=== PATIENT | female | born 1980 | race Caucasian/White ===

== ENCOUNTER → 2016-07-11 | Outpatient (CLI) | payer BC ==
--- NOTE | 2016-07-11 10:37 | DI ---
GALLBLADDER AND LIVER ULTRASOUND, 07/11/2016 8:49 AM: Clinical History: Abdominal pain. Previous Exam: None at this facility. Technique: Scans are performed through the right upper quadrant in multiple projections. The patient was rolled from side to side and the gallbladder was balloted with the probe to facilitate visualizat ion of small gallstones. The gallbladder is well distended and has a normal wall thickness. There is a large 25 mm gallstone t hat has associated acoustical shadowing change. It is mobile and moves with change in the patient's p osition. There is no Solorio's sign. The common bile duct measures 3 mm. The pancreas is visualized fr om the head to the body and is normal. The visualized portions of the liver, right kidney, and IVC ar e normal. The aorta is normal. Readin. Cholelithiasis. There is no Solorio's sign. The common bile duct measures 3 mm. 2. The liver, pancreas, right kidney, IVC, and aorta are normal.
== END ==
LOC: US 08:45
PROVIDERS: ATTEND Family Medicine
DX: R10.84 Generalized abdominal pain (principal); K80.20 Calculus of gallbladder without cholecystitis without obstruction
CPT/HCPCS: 76705

== ENCOUNTER → 2016-07-12 | Outpatient (CLI) | payer BC ==
[2016-07-12 11:24] LABS: BASOPHILS # (AUTO) 0.03 10*3/UL; BASOPHILS % (AUTO) 0.3 % (0-1); EOSINOPHILS % (AUTO) 3.7 % (0-8); HEMATOCRIT 43.4 % (37.0-47.0); IMM GRAN % (AUTO) 0.6 % (0-5); IMM GRAN# (AUTO) 0.07 10*3/UL; LYMPHOCYTES # (AUTO) 2.14 10*3/uL; LYMPHOCYTES % (AUTO) 19.2 % (10-50); MEAN CORPUSCULAR HEMOGLOBIN 30.1 PG (27-31); MEAN CORPUSCULAR HGB CONC 34.6 g/dL (33-37); MEAN PLATELET VOLUME 10.4 FL (7.4-12.2); MONOCYTES # (AUTO) 0.56 10*3/UL (0.3-0.8); NEUTROPHILS # (AUTO) 7.94 10*3/UL; NEUTROPHILS % (AUTO) 71.2 % (50-80); RDW COEFFICIENT OF VARIATION 13.1 % (11.5-14.5); RED BLOOD COUNT 4.98 10^6/uL (4.20-5.40); WHITE BLOOD COUNT 11.15 10^3/uL (4.8-10.8)
[2016-07-12 11:28] LABS: PLATELET MORPHOLOGY COMMENT NORMAL MORPHOLOGY (NORM)
[2016-07-12 12:09] LABS: AMYLASE 59 U/L (30-110); ASPARTATE AMINO TRANSFERASE 16 IU/L (8-39); BILIRUBIN,TOTAL 0.4 mg/dL (0.3-1.2); BLOOD UREA NITROGEN 14 mg/dL (7-22); CALCIUM 9.9 mg/dL (8.7-10.7); CHLORIDE 107 meq/L (98-112); CREATININE 0.8 mg/dL (0.50-1.20); EST GLOMERULAR FILTRATION > 60 (>60 ml/min/1.73m(2)); GLUCOSE 101 mg/dL (78-110); POTASSIUM 4.4 meq/L (3.8-5.2); SODIUM 138 meq/L (135-145); TOTAL PROTEIN 7.1 g/dL (6.1-8.0)
== END ==
LOC: MOB LAB 09:45
PROVIDERS: ATTEND Family Medicine
DX: R10.11 Right upper quadrant pain (principal); I10 Essential (primary) hypertension; F17.210 Nicotine dependence, cigarettes, uncomplicated
CPT/HCPCS: 36415; 80053; 82150; 83690; 84443; 85025

== ENCOUNTER 2016-07-16 08:17 | Day surgery (SDC) | payer BC ==
[~2016-07-16 08:17] MED LIST: AMPICILLIN/SULBACTAM 1.5 GM VIAL IV ONE; LIDOCAINE W/ SODIUM BICARB 0.5 ML SYR ONE; Lactated Ringers 1,000 ML PRIMARY IV ONE; Sodium Chloride 0.9% 100 ML IV ONE
[2016-07-16] MEDS ORDERED: BUPIVACAINE 0.25% W/ EPI - 10 ML VIAL ONE (08:57)
[2016-07-16] MEDS ORDERED: ROCURONIUM 10 MG/1 ML - 5 ML VIAL IVP ONE (09:37)
[2016-07-16] MEDS ORDERED: MIDAZOLAM 5 MG/1 ML ONE (09:38)
[2016-07-16] MEDS ORDERED: fentaNYL Inj 250 MCG/5 ML VIAL ONE (09:38)
[2016-07-16] MEDS ORDERED: LIDOCAINE MPF 2% - 5 ML (20 MG/1 ML) ONE (09:38)
[2016-07-16] MEDS ORDERED: DEXAMETHASONE SOD PHOSPHATE 4 MG/1 ML VIAL ONE (09:55)
[2016-07-16] MEDS ORDERED: KETOROLAC 30 MG/1 ML VIAL ONE (09:56)
[2016-07-16] MEDS ORDERED: ONDANSETRON 4 MG/2 ML VIAL ONE (09:56)
[2016-07-16] MEDS ORDERED: KETAMINE 100 MG/1 ML - 5 ML ONE (09:57)
[2016-07-16] MEDS ORDERED: Lactated Ringers 1,000 ML PRIMARY IV ONE (10:13)
[2016-07-16] MEDS ORDERED: HYDROmorphone 2 MG/1 ML ONE (10:38)
[2016-07-16] MEDS ORDERED: SUGAMMADEX SODIUM 200 MG/2 ML VIAL IV ONE (10:42)
[2016-07-16] MEDS ORDERED: MORPHINE SULFATE 2 MG/1 ML IVP PRN (10:55)
[2016-07-16] MEDS ORDERED: NORMAL SALINE 10 ML SYRINGE FLUSH IVP PRN ×2 (10:55→11:00)
[2016-07-16] MEDS ORDERED: HYDROcodone-APAP 7.5 MG-325 MG TABLET PO PRN (10:55)
[2016-07-16] MEDS ORDERED: ONDANSETRON 4 MG/2 ML VIAL IVP PRN (10:55)
[2016-07-16] MEDS ORDERED: KETOROLAC 30 MG/1 ML VIAL IVP PRN (10:55)
[2016-07-16] MEDS ORDERED: PROMETHAZINE 25 MG/1 ML VIAL IM PRN (11:00)
[2016-07-16] MEDS ORDERED: HYDROmorphone 2 MG/1 ML IVP PRN (11:00)
[2016-07-16] MEDS ORDERED: fentaNYL Inj 100 MCG/2 ML VIAL IVP PRN (11:00)
[2016-07-16] MEDS ORDERED: Lactated Ringers 1,000 ML PRIMARY IV SCH (11:00)
--- NOTE | 2016-07-16 11:03 | GEN.OPNOTE ---
Operative Note Surgery Date: 07/16/16 Preoperative Diagnosis: Cholelithiasis Postoperative Diagnosis: Cholelithiasis with chronic cholecystitis without obstruction Procedure: DaVinci single site laparoscopic cholecystectomy Data Operations Leader: Manpreet Mcpherson MD Anesthesia Provider: Albert James CRNA Anesthesia Type: General Estimated Blood Loss (mL): 1 Fluids: 1800 mL of LR Pathology: Gallbladder and gallstones Indications: Cholelithiasis Findings: Chronically inflamed appearing gallbladder with a large gallstone Complications: None Operative Summary: The patient is going to the operating room placed in supine position given general endotracheal anesthesia after adequate anesthesia patient is prepped draped sterile fashion. 0.025% Marcaine was infiltrated around the umbilicus a 2.5 cm incision was made through the umbilicus sharp dissection was carried to the subcutaneous tissue. Open the abdominal wall with sharp dissection once in the abdominal cavity I put the single side-port in pneumoperitoneum was obtained by insufflating CO2. After adequate pneumoperitoneum of the patient was positioned. We then put the camera port and docked in standard fashion. We then measured the gallbladder appropriate trocar size. We then docked the. robot to the camera and standard fashion. We then placed the ports and docked appropriately to the da Chago robot. The assistant corporate controller port was then placed. Gallbladder rest of the fundus retracted over liver edge. The surgeon then went to the console. I then dissected out the cystic duct. With 3 hemoclips 2 proximally one distally and then divided the cystic duct. Dissection of the cystic artery placed 2 hemoclips and then divided the cystic artery next to the gallbladder. Then dissected the gallbladder off the liver edge using the cautery we irrigated until clear. We then be docked for robot removed all trochars. We inserted the camera and inspected there is no injuries the common bile ducts no evidence of bile leak there was adequate hemostasis. Then removed the camera and port and removed the single site port along with the gallbladder. The fascia was closed with 0 Vicryl contusion or suture. Skin reapproximated using 4-0 Monocryl simple sutures. Sutures were applied sterile dressing was applied. Counts were correct. The patient was transferred to recovery room in stable condition.
[2016-07-16] MEDS ORDERED: HYDROcodone-APAP 7.5 MG-325 MG TABLET PO ONE (12:23)
[2016-07-16] MEDS ORDERED: fentaNYL Inj 100 MCG/2 ML VIAL ONE (12:38)
[2016-07-16 14:17] VITALS: RESP 12; TEMP 98.6
== END 2016-07-16 13:56 | disposition home or self-care (01) ==
LOC: SDSC 08:17
PROVIDERS: ATTEND Surgery
DX: K80.10 Calculus of gallbladder with chronic cholecystitis without obstruction (principal)
CPT/HCPCS: 47562; J1885; J2704; J3010 ×2; J0295; J1100; J1170; J2001; J2250; J2405; J7050; J7120

== ENCOUNTER 2016-08-14 14:15 | Emergency (ER) | payer BC ==
[2016-08-14 14:32] VITALS: RESP 14; TEMP 97.8
[2016-08-14] MEDS ORDERED: ONDANSETRON 4 MG/2 ML VIAL IVP ONE (14:32)
[2016-08-14] MEDS ORDERED: MEPERIDINE HCL/PF 100 MG/1 ML INJECTION IVP ONE (14:32)
[2016-08-14] MEDS ORDERED: PROMETHAZINE 25 MG/1 ML VIAL IM ONE (14:32)
[2016-08-14] MEDS ORDERED: KETOROLAC 15 MG/1 ML VIAL IVP ONE (14:32)
[2016-08-14] MEDS ORDERED: Sodium Chloride 0.9% 1,000 ML PRIMARY IV ONE (14:32)
[2016-08-14] MEDS ORDERED: NORMAL SALINE 10 ML SYRINGE FLUSH IVP PRN (14:32)
--- NOTE | 2016-08-14 15:35 | PDOC ---
Headache HPI - General Chief Complaint: Headache Stated Complaint: migraine x3 days Date Seen by Provider: 08/14/16 Time Seen by Provider: 14:30 - History of Present Illness Initial Comments: Patient is a very nice 35-year-old woman who unfortunately suffers from migraines and has since she was child. She rarely needs to come to the emergency department for management of these but this is one of those times. She has tried some medication she's been given as an outpatient and those are not working and she would like to break the cycle and get improvement from her headache. She states that in the past she has been given Demerol. She believes this is a typical migraine for her that it is not different in regards to quality or location of headache or anything that would make her think there something besides migraine going on here. She is on prophylactic medication including Topamax. She does follow with her primary care provider regularly in regards to her headaches. - Patient Home Medications Home Medications: Home Medications Ondansetron [Zofran Odt] 4 mg PO Q8H PRN #30 tab 04/02/16 Pantoprazole Sodium [Protonix] 40 mg ORAL QD #30 tab 04/02/16 Topiramate [Topamax] 150 mg PO QD #90 tab 04/02/16 Naratriptan HCl [Amerge] 2.5 mg PO QD PRN #15 tab 04/11/16 Fluoxetine HCl 1 tab PO DAILY #30 tab 07/12/16 Trazodone HCl 50 mg PO QHS #30 tab 07/12/16 Lisinopril 10 mg ORAL QD #30 tab 08/06/16 Tramadol HCl 1 tab PO Q4-6H #30 tab 08/14/16 - Patient Allergies Allergies/Adverse Reactions: Allergies Allergy/AdvReac Type Severity Reaction Status Date / Time No Known Allergies Allergy Verified 08/14/16 14:16 Past Medical History - heen HEENT History: Denies History Cardiovascular History: Hypertension Respiratory History: Denies History Gastrointestinal History: GERD, Gallbladder Disease Genitourinary History: Denies History Endocrine History: Denies History Musculoskeletal History: Back Pain Prosthesis or Implant: No Neurological History: Migraines, Motion Sickness Blood Disorders: Denies History Psychiatric History: Depression, Anxiety Disorders History of Sexually Transmitted Diseases: No Female Reproductive History: Hysterectomy Cancer History: Denies History In Past Year Been Physically Harmed or Verbally Threatened: No History of MDRO: No History of Other Communicable Diseases: No Tobacco Use: Current Every Day Smoker Alcohol Use: Rarely Substance Use Type: None Previous Surgical History: Yes Type / Date of Surgery: C SECTION X 2/ BACK SX/TUBAL / TONSILLECTOMY/ HYST/ ada Anesthesia Reactions: Yes (PONV BACK SURGERY) Malignant Hyperthermia: No Significant Family History: No pertinent family hx Past Medical History Reviewed: Reviewed - No Changes ROS - Limitations ROS Limitations: No Limitations Constitution: REPORTS: Denies Symptoms Cardiovascular: REPORTS: Denies Cardiac Symptoms Respiratory: REPORTS: Denies Resp Symptoms Headache Exam - General Appearance General Appearance: POSITIVE: Alert, Cooperative, Other (Clearly in pain) - HEENT Head / Face: POSITIVE: Atraumatic, Normal Inspection, No Facial Swelling Eyes: POSITIVE: Inspection Normal, PERRL Ears: POSITIVE: Ears Normal Inspection Nose: POSITIVE: Inspection Normal Headache Progress - Patient's Progress MDM / ED Course: IV is placed patient is given a 1 L normal saline bolus as well as some Demerol and Toradol for her pain. She states that narcotics always make her nauseated therefore she is given a dose of Zofran IV and a dose of Phenergan IM and hopefully this will allow her to rest and break the headache cycle as she is in. If this does well we'll go ahead and get her discharged home and have her follow-up closely with her primary care provider. Patient Care Time - Estimated PCT Patient Care Time (In Minutes): 30 Vital Signs - Recent Vital Signs Vital Signs: Vital Signs (Last 8 hours) Temp Pulse Resp BP Pulse Ox 08/14/16 14:16 97.8 F 97 14 136/84 96 Discharge Clinical Impression: Migraine Discharge Disposition: Discharged to Home Condition: Stable Patient Instructions Given at Discharge: Migraine Headache (ED) Additional Instructions: Follow-up with your primary care provider as soon as possible Use your [id number] and prescription medicines as prescribed by her primary care provider for any future headaches Return if he starts to have fever vomiting worsening headache or other concerning symptoms. Increase your Topamax as recommended by your primary care provider Follow Up With: MING GOTTI [Primary Care Provider] -
[2016-08-14] MEDS ORDERED: Meperidine Inj 50 MG/ML CARPUJECT IVP ONE (16:08)
== END 2016-08-14 18:15 | disposition home or self-care (01) ==
LOC: ER 14:15
DX: G43.009 Migraine without aura, not intractable, without status migrainosus (principal); Z72.0 Tobacco use
CPT/HCPCS: 96361; 96372; 96374; 96375; 99282; 99283; J1885; J2175; J2405; J2550; J7030

== ENCOUNTER → 2016-09-03 | Outpatient (CLI) | payer BC ==
--- NOTE | 2016-09-03 11:37 | DI ---
MRI BRAIN W/O CN,09/03/2016 8:46 AM: Clinical History: Tremor Previous Exam: February 23, 2008 Findings: Multiplanar MR images are obtained through the brain without contrast, and demonstrate normal, symmet reynaldo ventricles and other CSF containing spaces. There is no mass, hemorrhage or midline shift. The ce rebellar tonsils extend to the level of the foramen magnum without any extension through the foramen. The cerebellopontine angles are unremarkable. The major vascular flow voids are unremarkable. The intraorbital structures are unremarkable. The internal auditory canals are normal. Signal within the clivus is normal in the paranasal sinuses are unremarkable. Impression: Normal MRI brain.
== END ==
LOC: MRI 08:40
PROVIDERS: ATTEND Nurse Practitioner Family
DX: R25.1 Tremor, unspecified (principal)
CPT/HCPCS: 70551

== ENCOUNTER 2016-09-19 17:38 | Emergency (ER) | payer BC ==
--- NOTE | 2016-09-19 17:55 | PDOC ---
Gen Adult / Medical Screen HPI - General Chief Complaint: General Medical Stated Complaint: JOINT PAIN Date Seen by Provider: 09/19/16 Time Seen by Provider: 17:49 Source: POSITIVE: Patient Exam Limitations: POSITIVE: No limitations Nurse's Notes Reviewed & Considered: Yes - Indicators Temperature Between 95 and 101 Degrees: Yes Respirations Between 12 and 20: Yes Blood Pressure Between 100-165 (sys) and 60-100 (velasquez): Yes Pulse Range Between 60-105 (100 for age > 60 years): Yes Severe Pain (Greater than 5/10 Reported): Yes (body aches with arm and leg pain being greatest.) Chest or Abdominal Pain: No Inability to Walk: No Pt Reports Active High Risk Cond. (TB/Hepatitis/HIV/Chemo): No Abnormal Mental Status: No - History of Present Illness Initial Comments: Patient comes in today with chief complaint of arm and leg pain. Patient with arm and leg pain that has been ongoing for several weeks. She is scheduled to see a neurologist in [facility]. Her pain has gotten inordinately worse today. Predominantly pain is in her large muscle groups of the upper and lower extremities. 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 She is right handed. She denies any fever chills sweats, chest pain, shortness of breath, nausea vomiting or diarrhea, no rashes, no headaches, no vision changes. Body Location Affected: REPORTS: Upper Extremity (L), Upper Extremity (R), Lower Extremity (L), Lower Extremity (R) Timing: REPORTS: Constant, Getting Worse Duration: Unknown Similar Symptoms Previously: Yes Recent Care Received: REPORTS: Recently Seen Any Prior Injuries Related to Current Complaint?: No - Patient Home Medications Home Medications: Home Medications Ondansetron [Zofran Odt] 4 mg PO Q8H PRN #30 tab 04/02/16 Pantoprazole Sodium [Protonix] 40 mg ORAL QD #30 tab 04/02/16 Topiramate [Topamax] 150 mg PO QD #90 tab 04/02/16 Naratriptan HCl [Amerge] 2.5 mg PO QD PRN #15 tab 04/11/16 Trazodone HCl 50 mg PO QHS #30 tab 07/12/16 Lisinopril 10 mg ORAL QD #30 tab 08/06/16 Tramadol HCl 1 tab PO Q4-6H #30 tab 08/14/16 Fluoxetine HCl 1 tab PO DAILY #30 tab 08/27/16 Hydrocodone/Acetaminophen [Hydrocodon-Acetaminoph 7.5-325] 1 - 2 tab PO Q4H PRN #20 tab 08/27/16 - Patient Allergies Allergies/Adverse Reactions: Allergies Allergy/AdvReac Type Severity Reaction Status Date / Time No Known Allergies Allergy Verified 09/19/16 19:05 Past Medical History - heen HEENT History: Denies History Cardiovascular History: Hypertension Respiratory History: Denies History Gastrointestinal History: GERD, Gallbladder Disease Genitourinary History: Denies History Endocrine History: Denies History Musculoskeletal History: Back Pain Prosthesis or Implant: No Neurological History: Migraines, Motion Sickness Blood Disorders: Denies History Psychiatric History: Depression, Anxiety Disorders History of Sexually Transmitted Diseases: No Cancer History: Denies History History of MDRO: No History of Other Communicable Diseases: No Alcohol Use: Rarely Substance Use Type: None Previous Surgical History: Yes Type / Date of Surgery: C SECTION X 2/ BACK SX/TUBAL / TONSILLECTOMY/ HYST/ ada Anesthesia Reactions: Yes (PONV BACK SURGERY) Malignant Hyperthermia: No Significant Family History: No pertinent family hx ROS - Limitations ROS Limitations: No Limitations Constitution: REPORTS: Weakness (Bilateral upper extremity weakness.) Cardiovascular: REPORTS: Denies Cardiac Symptoms Respiratory: REPORTS: Denies Resp Symptoms Neurological: REPORTS: Difficulty Walking (Patient states she is having increasing difficulty walking because of lack of strength.), Weakness Gastrointestinal: REPORTS: Denies GI Symptoms Endocrine: REPORTS: Fatigue (Patient state that her fatigue is increased because she lies awake trying to move her legs to keep the pain from getting worse) Musculoskeletal: REPORTS: Muscle Aches Genitourinary: REPORTS: Denies Symptoms Eyes: REPORTS: Denies Symptoms ENT: REPORTS: Denies Symptoms Skin: REPORTS: Denies Skin Symptoms Lympathic: REPORTS: Swollen Glands Immunologic: POSITIVE: Denies Symptoms Psychiatric: POSITIVE: Denies Psych Symptoms Gen Adult/Medical Screen Exam - General Appearance General Appearance: POSITIVE: Alert, Cooperative, No Acute Distress, No Evidence of Trauma - HEENT HEENT: POSITIVE: Head Inspection Nml, Eyes Inspection Nml, Ears Inspection Nml, Nose Inspection Nml, Oral/Dental Inspect. Nml, Pharynx Inspect. Nml, PERRL, EOMI - Pupils Pupil Size: 4 mm: Bilateral - Neck Neck: POSITIVE: Normal Inspection, Thyroid Normal - Respiratory Respiratory: POSITIVE: No Respiratory Distress, Breath Sounds Normal, Chest Non- Tender - Cardiovascular Cardiovascular: POSITIVE: Regular Rate & Rhythm, No Murmur, No Gallop, PMI Normal - Abdomen Abdomen: Soft: (All Quadrants), Normal Bowel Sounds: (All Quadrants), Denies Tenderness: (All Quadrants) - Back Back: POSITIVE: Normal Inspection - Neurological / Psychological Mental Status: POSITIVE: Mood Normal, Affect Normal Orientation: POSITIVE: Oriented x 3 Reflexes: Patellar (R): 4+, Patellar (L): 4+, Radial (R): 4+, Radial (L): 4+ - Skin Skin: POSITIVE: Normal Color, Warm, Dry, No Rash - Extremities Extremity: Non-Tender: (All Extremities), Normal ROM: (All Extremities), Normal Inspection: (All Extremities), Pelvis Stable: (All Extremities) Procedures - Laceration/Wound Repair Did patient have a laceration repair: No Gen Adlt/Medical Scrn Progress - Results Reviewed by me Lab Results Reviewed: Yes Lab Results:: Laboratory Results 09/19/16 09/19/16 Range/Units 18:35 19:51 WBC 12.05 H (4.8-10.8) 10^3/uL RBC 4.74 (4.20-5.40) 10^6/uL Hgb 14.5 (12.0-16.0) g/dL Hct 41.5 (37.0-47.0) % MCV 87.6 (81-99) FL MCH 30.6 (27-31) PG MCHC 34.9 (33-37) g/dL RDW Std Deviation 39.6 (39-50) fL RDW Coeff of Chrissy 12.6 (11.5-14.5) % Plt Count 260 (140-350) 10*3/uL MPV 9.8 (7.4-12.2) FL Immature Gran % (Auto) 0.3 (0-5) % Neut % (Auto) 73.3 (50-80) % Lymph % (Auto) 16.8 (10-50) % Lyon % (Auto) 5.3 (5-15) % Eos % (Auto) 4.1 (0-8) % Baso % (Auto) 0.2 (0-1) % Immature Gran # (Auto) 0.04 10*3/UL Neut # (Auto) 8.83 10*3/UL Lymph # (Auto) 2.02 10*3/uL Lyon # (Auto) 0.64 (0.3-0.8) 10*3/UL Eos # (Auto) 0.50 10*3/UL Baso # (Auto) 0.02 10*3/UL WBC Morphology Comment Normal morphology (NORM) Plt Morphology Comment Normal morphology (NORM) RBC Morph Comment Normal morphology (NORM) ESR Pending Sodium 140 (135-145) meq/L Potassium 3.5 L (3.8-5.2) meq/L Chloride 108 (98-112) meq/L Carbon Dioxide 20 L (23-33) meq/L Anion Gap 12 (5-20) BUN 13 (7-22) mg/dL Creatinine 0.9 (0.50-1.20) mg/dL Estimated GFR > 60 (>60 ml/min/1.73m(2)) BUN/Creatinine Ratio 14.44 (6-20) Glucose 101 (78-110) mg/dL Calculated Osmolality 289.0 (267-292) mOsm/kg Calcium 9.2 (8.7-10.7) mg/dL Magnesium 2.0 (1.6-2.4) mg/dL Total Bilirubin 0.9 (0.3-1.2) mg/dL AST 19 (8-39) IU/L ALT 26 (9-52) IU/L Alkaline Phosphatase 49 (38-126) IU/L C-Reactive Protein 4.6 H (0.0-0.9) mg/dL Total Protein 7.5 (6.1-8.0) g/dL Albumin 4.3 (3.5-4.8) g/dL Globulin 3.2 (2.50-4.10) g/dL Albumin/Globulin Ratio 1.30 (1.3-2.0) mg/g TSH 1.68 (0.2700-4.2000) uIU/mL Free T4 0.97 (0.93-1.71) ng/dL Serum HCG, Qual Negative Ur Collection Type Void Urine Color Yellow Urine Clarity Slightly cloudy (CLEAR) Urine pH 7.0 (5.0-8.5) Ur Specific [place] 1.015 (1.005-1.030) Urine Protein Negative (NEG) mg/dl Urine Glucose (UA) Negative (NEG) mg/dL Urine Ketones 15 (NEG) Urine Occult Blood Negative (NEG) Urine Nitrate Negative (NEG) Urine Bilirubin Negative (NEG) Urine Urobilinogen 1.0 (0.2) EU/dL Ur Leukocyte Esterase Trace (NEG) Urine RBC None (NONE) /hpf Urine WBC 1-3 (NONE) Ur Squamous Epith Cells Many (NONE) Ur Renal Epithelial Cell None (NONE) Urine Crystals None Urine Bacteria Few (NONE) Urine Casts None (NONE) Urine Mucus None (NONE) Urine Trichomonas None (NONE) Urine Yeast None (NONE) Ur Culture Indicated? Culture not set - Patient's Progress Pain Medication Addressed: POSITIVE: Yes Re-Examine Time: 20:02 Status: POSITIVE: Improved MDM / ED Course: Patient was examined, an IV started, blood drawn and sent to the lab for studies. Patient received Toradol, Zofran, normal saline, and gabapentin. Her symptoms did improve. Findings: CBC shows white count elevated to 12. Inflammatory markers are elevated with a CRP of 4.6. Assessment: Myalgias of unknown etiology. Plan: Discharge home patient receives a prescription for gabapentin and [place]. She has instructions to follow-up with her primary care physician. - Consult Counseled: POSITIVE: Patient, Family, RE: Lab Results, RE: DX, RE: Need for F/U Patient Care Time - Estimated PCT Patient Care Time (In Minutes): 30 Vital Signs - Recent Vital Signs Vital Signs: Vital Signs (Last 8 hours) Temp Pulse Resp BP Pulse Ox 09/19/16 18:00 98.2 F 91 16 109/77 95 - VS Reviewed Vital Signs Reviewed: Yes Discharge Clinical Impression: Myalgia and myositis Discharge Disposition: Discharged to Home Condition: Stable Patient Instructions Given at Discharge: Musculoskeletal Pain (ED)
[2016-09-19] MEDS ORDERED: KETOROLAC 30 MG/1 ML VIAL IVP ONE (18:02)
[2016-09-19] MEDS ORDERED: LORazepam 2 MG/1 ML VIAL IVP ONE (18:02)
[2016-09-19] MEDS ORDERED: Sodium Chloride 0.9% 1,000 ML PRIMARY IV ONE (18:02)
[2016-09-19] MEDS ORDERED: ONDANSETRON 4 MG/2 ML VIAL IVP ONE (18:02)
[2016-09-19 18:39] LABS: BASOPHILS # (AUTO) 0.02 10*3/UL; BASOPHILS % (AUTO) 0.2 % (0-1); EOSINOPHILS % (AUTO) 4.1 % (0-8); HEMATOCRIT 41.5 % (37.0-47.0); HEMOGLOBIN 14.5 g/dL (12.0-16.0); LYMPHOCYTES # (AUTO) 2.02 10*3/uL; MEAN CORPUSCULAR HEMOGLOBIN 30.6 PG (27-31); MEAN CORPUSCULAR HGB CONC 34.9 g/dL (33-37); MEAN CORPUSCULAR VOLUME 87.6 FL (81-99); MEAN PLATELET VOLUME 9.8 FL (7.4-12.2); MONOCYTES # (AUTO) 0.64 10*3/UL (0.3-0.8); MONOCYTES % (AUTO) 5.3 % (5-15); NEUTROPHILS # (AUTO) 8.83 10*3/UL; NEUTROPHILS % (AUTO) 73.3 % (50-80); RED BLOOD COUNT 4.74 10^6/uL (4.20-5.40)
[2016-09-19 18:40] LABS: PLATELET MORPHOLOGY COMMENT NORMAL MORPHOLOGY (NORM); RBC MORPHOLOGY COMMENT NORMAL MORPHOLOGY (NORM); WBC MORPHOLOGY COMMENT NORMAL MORPHOLOGY (NORM)
[2016-09-19 18:50] LABS: BLOOD UREA NITROGEN 13 mg/dL (7-22); BUN/CREATININE RATIO 14.44 (6-20); C-REACTIVE PROTEIN 4.6 mg/dL (0.0-0.9); CALCIUM 9.2 mg/dL (8.7-10.7); EST GLOMERULAR FILTRATION > 60 (>60 ml/min/1.73m(2)); SERUM ALBUMIN 4.3 g/dL (3.5-4.8)
[2016-09-19 19:06] LABS: FREE T4 (FREE THYROXINE) 0.97 ng/dL (0.93-1.71)
[2016-09-19 19:54] LABS: BILIRUBIN,URINE NEGATIVE (NEG); COLOR,URINE YELLOW; GLUCOSE, URINE (UA) NEGATIVE (NEG); NITRATE,URINE NEGATIVE (NEG); OCCULT BLOOD,URINE NEGATIVE (NEG); PROTEIN,URINE NEGATIVE (NEG)
[2016-09-19 19:55] LABS: CLARITY,URINE SLIGHTLY CLOUDY (CLEAR)
[2016-09-19] MEDS ORDERED: GABAPENTIN 300 MG CAPSULE PO ONE (19:55)
[2016-09-19 19:56] LABS: BACTERIA,URINE FEW; SQUAMOUS EPITHELIAL CELL,UR MANY; URINE SAMPLE TYPE VOID
[2016-09-19 19:57] VITALS: RESP 16; TEMP 98.2
[2016-09-19] MEDS ORDERED: HYDROcodone-APAP 5 MG -325 MG TABLET PO ONE (20:14)
[2016-09-19 21:44] LABS: ERYTHROCYTE SEDIMENTATION RATE 9 MM/HR (0-20)
== END 2016-09-19 20:24 | disposition home or self-care (01) ==
LOC: ER 17:38
DX: M60.9 Myositis, unspecified (principal); M79.1 Myalgia; R79.82 Elevated C-reactive protein (CRP)
CPT/HCPCS: 80053; 81001; 81003; 83735; 84439; 84443; 84703; 85025; 85652; 86140; 96361; 96374; 96375; 99282; 99283; J1885; J2060; J2405; J7030

== ENCOUNTER → 2016-09-28 | Outpatient (CLI) | payer BC ==
[2016-09-28 13:06] LABS: FREE T4 (FREE THYROXINE) 0.97 ng/dL (0.93-1.71)
== END ==
LOC: LAB 11:58
PROVIDERS: ATTEND Nurse Practitioner Family
DX: M79.2 Neuralgia and neuritis, unspecified (principal); R25.1 Tremor, unspecified; F17.200 Nicotine dependence, unspecified, uncomplicated
CPT/HCPCS: 36415; 82607; 82728; 83540; 83550; 84439; 84443; 85652; 86038